=== PATIENT | male | born 1980 | race Caucasian/White ===

== ENCOUNTER 2023-02-26 08:01 | Day surgery (SDC) | payer OTHER ==
[~2023-02-26 08:01] MED LIST: Lactated Ringers 1,000 ML IV SCH
[2023-02-26] MEDS ORDERED: Lidocaine 2% 5 ML SDV ONE (09:48)
[2023-02-26] MEDS ORDERED: Propofol 200 MG/20 ML SDV ONE ×3 (09:49→10:38)
[2023-02-26] MEDS ORDERED: Lactated Ringers 1,000 ML IV SCH (11:00)
== END 2023-02-26 11:25 | disposition home or self-care (01) ==
LOC: MW.SDS 08:01
PROVIDERS: ATTEND Surgery
DX: R19.4 Change in bowel habit (principal); R19.5 Other fecal abnormalities; R19.8 Other specified symptoms and signs involving the digestive system and abdomen; E78.00 Pure hypercholesterolemia, unspecified; I10 Essential (primary) hypertension; Z79.899 Other long term (current) drug therapy
CPT/HCPCS: 45378; J2704; J7120; J3490

== ENCOUNTER 2024-02-16 04:19 | Emergency (ER) | payer BC, OTHER ==
[2024-02-16] MEDS: cefTRIAXone 1 GM Vial IV ONE (04:49)
[2024-02-16] MEDS: cefTRIAXone 1 GM in Sodium Chloride 0.9% 50 ML IV ONE (05:00)
[2024-02-16] MEDS: Sodium Chloride 0.9% 2.5 ML Syringe FLUSH PRN (05:00)
[2024-02-16] MEDS: Ketorolac 30 MG/ML SDV IVPUSH ONE (05:00)
[2024-02-16] MEDS: Azithromycin 250 MG Tab PO ONE (05:00)
[2024-02-16] MEDS: Sodium Chloride 0.9% 10 ML Syringe FLUSH PRN (05:00)
[2024-02-16] MEDS: Sodium Chloride 0.9% 1,000 ML IV ONE (05:01)
[2024-02-16 05:11] LABS: BASOPHILS ABSOLUTE AUTO 0.03 K/uL (0.00-0.20); BASOPHILS PERCENT AUTO 0.4 % (0.0-1.0); EOSINOPHILS ABSOLUTE AUTO 0.04 K/uL (0.00-0.45); EOSINOPHILS PERCENT AUTO 0.5 % (0.0-6.0); HEMATOCRIT 47.6 % (42.0-52.0); HEMOGLOBIN 17.1 g/dL (14.0-18.0); IMMATURE GRAN ABSOLUTE AUTO 0.02 K/uL (0.00-0.05); IMMATURE GRAN PERCENT AUTO 0.3 % (0.0-0.4); LYMPHOCYTES ABSOLUTE AUTO 0.87 K/uL (1.00-4.80); LYMPHOCYTES PERCENT AUTO 10.9 % (24.0-44.0); MEAN CORPUSCULAR HEMOGLOBIN 32.2 pg (28.0-32.0); MEAN CORPUSCULAR HGB CONC 35.9 g/dL (32.0-36.0); MEAN CORPUSCULAR VOLUME 89.6 fL (83.0-99.0); MEAN PLATELET VOLUME 8.7 fL (9.4-12.4); MONOCYTES ABSOLUTE AUTO 0.74 K/uL (0.00-0.80); MONOCYTES PERCENT AUTO 9.3 % (0.0-8.0); NEUTROPHILS ABSOLUTE AUTO 6.26 K/uL (1.80-7.70); NEUTROPHILS PERCENT AUTO 78.6 % (41.0-71.0); PLATELET COUNT,PLT 219 K/uL (150-400); RED BLOOD CELL COUNT 5.31 M/uL (4.52-5.90); WHITE BLOOD CELL COUNT,WBC 7.96 K/uL (3.9-11.3)
[2024-02-16 05:37] LABS: A/G RATIO 0.8 (0.9-1.6); ALBUMIN 3.3 g/dL (3.4-5.0); BILIRUBIN TOTAL 0.9 mg/dL (0.2-1.0); CALCIUM 9.1 mg/dL (8.5-10.1); CREATININE 1.4 mg/dL (0.8-1.3); EST CRCL DRUG DOSING (CG) 73.13 mL/min; LACTIC ACID 0.5 mmol/L (0.4-2.0); PROTEIN TOTAL,TP 7.3 g/dL (6.4-8.2)
[2024-02-16 05:47] LABS: CORONAVIRUS COVID-19 NAA NEGATIVE (NEGATIVE); INFLUENZA A NAA NEGATIVE (NEGATIVE); INFLUENZA B NAA NEGATIVE (NEGATIVE)
== END 2024-02-16 06:16 | disposition home or self-care (01) ==
LOC: MW.ED 04:19
DX: J18.9 Pneumonia, unspecified organism (principal); I10 Essential (primary) hypertension
CPT/HCPCS: 0240U; 36415; 71046; 80053; 83605; 84484; 85025; 87040; 93005; 96361; 96365; 96375; 99284; A9270; J0696; J1885; J3490; J7030